=== PATIENT | female | born 1980 | race Caucasian/White ===

== ENCOUNTER → 2018-05-19 11:12 | Outpatient (CLI) | payer OTHER, SELFPAY ==
[2018-05-24 11:47] LABS: HPV Reflexed? NOT INDICATED
== END ==
PROVIDERS: Visit Provider Obstetrics & Gynecology
DX: Z12.4 Encounter for screening for malignant neoplasm of cervix (principal)
CPT/HCPCS: 88175; G0145

== ENCOUNTER → 2019-06-15 07:31 | Outpatient (CLI) | payer OTHER, SELFPAY ==
--- NOTE | 2019-06-15 07:39 | BI_ITS ---
MAMMOGRAPHY - BILATERAL SCREENING REASON FOR EXAM: Female, 38 years old. Routine annual screening examination. PERTINENT HISTORY: Non-contributory. TECHNIQUE: Digital bilateral breast brittany (3D mammographic acquisition) in the CC and MLO projections. 2-D mediolateral oblique (MLO) and craniocaudad (CC) views of both breasts were obtained. CAD: Full Field Digital Mammography with Computer Added Detection was performed. COMPARISON: None. Baseline examination. FINDINGS: Breast Composition: The breasts are extremely dense, which lowers the sensitivity of mammography. There are no dominant masses or suspicious calcifications. No other significant abnormalities are identified. BI/SCREEN MAMM (CAD) W/BRITTANY BILAT IMPRESSION: Negative screening mammogram. Yearly followup mammogram recommended. (A) ASSESSMENT CATEGORY: BIRADS Category 1: Negative. A letter regarding these results will be sent to the patient by the facility within 30 days. Approximately 10% of breast cancers are not detected by mammography. A normal mammogram should not delay biopsy of a clinically suspicious abnormality. [id number] Electronically Signed: Olivier Abrams, at 9:31 EDT , Service support ,
== END ==
PROVIDERS: Referring Provider Obstetrics & Gynecology; Visit Provider Obstetrics & Gynecology
DX: Z12.31 Encounter for screening mammogram for malignant neoplasm of breast (principal)
CPT/HCPCS: 77063; 77067

== ENCOUNTER → 2020-04-30 10:46 | Outpatient (CLI) | payer OTHER, SELFPAY | PROVIDERS: PCP Family Medicine; Referring Provider Family Medicine; Visit Provider Family Medicine | DX: Z20.828 Contact with and (suspected) exposure to other viral communicable diseases (principal) | CPT/HCPCS: 87635; G2023; U0003 ==

== ENCOUNTER → 2020-07-31 | Outpatient (CLI) | payer OTHER, SELFPAY ==
[2020-08-06 11:58] LABS: HPV Reflexed? NOT INDICATED
== END | disposition home or self-care (01) ==
LOC: LABSPEC 08-01 10:56
PROVIDERS: PCP Family Medicine; Visit Provider Obstetrics & Gynecology
DX: Z12.4 Encounter for screening for malignant neoplasm of cervix (principal)
CPT/HCPCS: 88175; G0145

== ENCOUNTER → 2020-08-28 16:40 | Outpatient (CLI) | payer OTHER, SELFPAY ==
--- NOTE | 2020-08-28 16:51 | BI_ITS ---
MAMMOGRAPHY - BILATERAL SCREENING REASON FOR EXAM: Female, 39 years old. Routine annual screening examination. PERTINENT HISTORY: Non-contributory. TECHNIQUE: Digital bilateral breast brittany (3D mammographic acquisition) in the CC and MLO projections. 2-D mediolateral oblique (MLO) and craniocaudad (CC) views of both breasts were obtained. CAD: Full Field Digital Mammography with Computer Added Detection was performed. COMPARISON: Comparison is made with prior study dated 06/15/2019. FINDINGS: Breast Composition: The breasts are extremely dense, which lowers the sensitivity of mammography. There are no dominant masses or suspicious calcifications. Stable benign-appearing bilateral axillary lymph nodes. No other significant abnormalities are identified. There has been no significant change since the prior study. BI/SCREEN MAMM (CAD) W/BRITTAYN BILAT IMPRESSION: Stable bilateral screening mammogram. Yearly follow-up mammogram recommended. (A) ASSESSMENT CATEGORY: BIRADS Category 2: Benign. A letter regarding these results will be sent to the patient by the facility within 30 days. Approximately 10% of breast cancers are not detected by mammography. A normal mammogram should not delay biopsy of a clinically suspicious abnormality. [id number] Electronically Signed: Olivier Abrams, at 9:02 EDT , Service support ,
== END ==
PROVIDERS: PCP Family Medicine; Referring Provider Obstetrics & Gynecology; Visit Provider Obstetrics & Gynecology
DX: Z12.31 Encounter for screening mammogram for malignant neoplasm of breast (principal)
CPT/HCPCS: 77063; 77067

== ENCOUNTER → 2021-10-10 10:08 | Outpatient (CLI) | payer OTHER, SELFPAY ==
--- NOTE | 2021-10-10 10:12 | BI_ITS ---
MAMMOGRAPHY - BILATERAL SCREENING REASON FOR EXAM: Female, 40 years old. Routine annual screening examination. PERTINENT HISTORY: Non-contributory. TECHNIQUE: Digital bilateral breast brittany (3D mammographic acquisition) in the CC and MLO projections. 2-D mediolateral oblique (MLO) and craniocaudad (CC) views of both breasts were obtained. CAD: Full Field Digital Mammography with Computer Added Detection was performed. COMPARISON: Comparison is made with prior examination dated 08/28/2020 and 06/15/2019. FINDINGS: Breast Composition: The breasts are extremely dense, which lowers the sensitivity of mammography. There are no dominant masses or suspicious calcifications. Stable benign-appearing bilateral axillary lymph nodes. No other significant abnormalities are identified. There has been no significant change since the prior study. BI/SCRN MAMM (CAD)W/BRITTANY BILAT IMPRESSION: Stable bilateral screening mammogram. Yearly follow-up mammogram recommended. (A) ASSESSMENT CATEGORY: BIRADS Category 1: Negative. A letter regarding these results will be sent to the patient by the facility within 30 days. Approximately 10% of breast cancers are not detected by mammography. A normal mammogram should not delay biopsy of a clinically suspicious abnormality. [id number] Electronically Signed: Olivier Abrams MD at 8:41 EST , Service support ,
== END ==
PROVIDERS: PCP Family Medicine; Referring Provider Obstetrics & Gynecology; Visit Provider Obstetrics & Gynecology
DX: Z12.31 Encounter for screening mammogram for malignant neoplasm of breast (principal)
CPT/HCPCS: 77063; 77067

== ENCOUNTER 2022-01-04 07:55 | Day surgery (SDC) | payer OTHER, SELFPAY ==
[2022-01-04] VITALS (7 sets, daily range): BP systolic 126–154; BP diastolic 85–91; PULSE 68–88; RESP 16; TEMP 36.4–37.3; O2SAT 96–100; BMI 36.7
--- NOTE | 2022-01-04 | COLBX_PTH ---
PATIENT: HILLARY CARO LOC: EN U#:[id number] AGE/SX: 41/F ROOM: RE01/04/[address]: Dr. Anabelle Ortiz MD : 1980 BED: DIS: 01/04/2022 SPEC #: [id number] RECD: 01/04/22 12:51 STATUS: SEAN REPradeep #: [id number] GARY: 01/04/22 00:[address]: Anabelle Ortiz DEPT: SURGICAL PATHOLOGY RECD BY: Jimbo Altamirano ENTERED: 01/04/22 13:52 SP TYPE: COLON BX OT DR: Dr. Lidia Bolaños, DO Tissues: COLON BIOPSY Procedures: Surgery Specimen Level IV HEADER OPERATION: Colonoscopy (MAC) with biopsy PRE-OP DIAGNOSIS: Diarrhea TISSUE SUBMITTED: Random colon biopsy MICROSCOPIC DIAGNOSIS Colon, random biopsy: No pathologic change. AM:judy 01/05/2022 MICROSCOPIC DESCRIPTION Slides are reviewed. GROSS DESCRIPTION Received in fixative is one container labeled with the patient's name and designated random colon biopsy. The specimen consists of multiple irregular fragments of light calixto soft tissue that in aggregate measure 1 x 0.5 x 0.1 cm. The specimen is totally submitted in one cassette. / SJ:judy 01/04/2022 TC:5 CPT: 78811
--- NOTE | 2022-01-04 08:01 | HP.PCM_ITS ---
History and Physical Date of Admission: 01/04/22 Date of Service: 12/11/21 Intake Vital Signs 12/11/21 14:02 Height 5 ft 5 in Weight: 227 lb 4 oz BMI 37.8 BP 147/95 H Blood Pressure Location Rt brachial Position Sitting Respiration 16 Pulse 86 Pulse Source Monitor Temp 97.4 F L Temp Source Temporal Pulse Oximetry (%) 98 Oxygen Delivery Method room air Intake Visit Reasons: CHRONIC DIARRHEA, CSCOPE Chief Complaint: chronic diarrhea, cscope Field Administrator Required: No Is patient in pain?: No Allergies Penicillins Allergy (Verified 12/11/21 14:04) unknown Medications cetirizine 10 mg tablet 10 mg PO DAILY PRN 12/11/21 [History Confirmed 12/11/21] multivitamin 1 tab PO DAILY 12/11/21 [History Confirmed 12/11/21] norgestimate-ethinyl estradiol 0.18 mg/0.215mg/0.25mg-35 mcg(28)tablet 1 tab PO DAILY 12/11/21 [History Confirmed 12/11/21] [facility] Medical History (Updated 12/11/21 @ 14:[address] Anabelle Ortiz MD) Acid reflux Diarrhea Hemorrhoids Surgical History (Updated 12/11/21 @ 14:01 by Rula Tuesday) History of tonsillectomy Previous section Social History (Updated 12/11/21 @ 14:02 by Rula Tuesday) Smoking Status: Never smoker alcohol intake: current details: socially substance use type: does not use HPI HPI HPI: HILLARY CARO, is a 41 F who presents to the office today for chronic diarrhea. Patient denies having reflux states she only has it maybe once a week. Patient's never had a colonoscopy. Patient has not had any stool studies completed. Patient denies any family history of colon cancer. Patient states she has been having diarrhea 1-2 times daily. ROS General General: Yes weight change; No appetite, fatigue, colon cancer or breast cancer HEENT HEENT: No difficulty swallowing, eye injury, eye surgery, swollen glands or hoarseness Endo Endocrine: No thyroid disease, diabetes mellitus, thyroid cancer, Hair loss, heat intolerance or cold intolerance Skin Skin: No rash or changing moles Musc Musculoskeletal: No back problems, arthritis, rheumatoid arthritis, gout or joint pain Cardio Cardiovascular: No murmur, pacemaker, heart disease, atrial fibrillation, high blood pressure, heart attack, heart stent, palpitations, shortness of breat with exertion or chest pain Psych Psychiatric: Yes anxiety; No depression or hearing voices Resp Respiratory: No shortness of breath, No sleep apnea, No cough, No COPD, No asthma, No emphysema and No wheezing Gastro Gastrointestinal: Yes abdominal pain, No nausea or vomiting, Yes diarrhea, No constipation, No blood in stool, Yes acid reflux, Yes hemorrhoids, No ulcers, No gallbladder problem and No black,tarry stools Dm Hematologic: No blood thinners, No blood disorders, No bleeding, No anemia and No blood clots Neuro Neurologic: No abnormal speech Exam Const General: cooperative, healthy appearing, comfortable and no acute distress Neck Neck: normal visual inspection Resp Effort & Inspection: normal respiratory effort Cardio Rate: regular rate GI Inspection: non-distended Palpation: soft, no guarding and nontender Skin General: no rashes or lesions noted Neuro General: patient oriented x3 Psych Affect: normal affect Assessment and Plan Assessment and Plan (1) Diarrhea: Status: Acute Plan - Dr. Anabelle Ortiz MD: I have discussed the above with the patient. I have offered the patient colonoscopy for evaluation. We will plan to do random biopsy as well. I have explained the risks/benefits of the procedure and described the procedure. I have discussed the risks with the patient, including but not limited to: infection, bleeding, perforation of the GI tract requiring emergency surgery, inability to complete the procedure, injury to any internal organs, complications of anesthesia, etc. - the patient understands and agrees to proceed. I have answered all the patient's questions to the patient's satisfaction and the patient has no further questions. The patient has been given instructions for the colon cleansing preparation. 1 day of clears, MiraLAX Dulcolax split prep. Anabelle Ortiz M.D. Pager: [phone] [facility] [address] [place] [address], [facility], [address] [place] [address] Office: [phone] (2) Acid reflux: Status: Acute Comment: Only maybe once a week Plan - Dr. Anabelle Ortiz MD: Patient states she only has reflux occasionally maybe once a week with burning in her esophagus. No need for medication. Plan Details Other Orders: Orders: Colonoscopy 12/11/21 Coding Level of Care Code Off vis,new,level 3 Diagnoses Diarrhea R19.7 Acid reflux K21.9 12/13/21 1325<Electronically signed by Anabelle Ortiz MD>Date Anabelle Ortiz MD
[2022-01-04 08:21] LABS: Internal QC Validated? YES +Cl - CLEAR BKGD; Pregnancy, Urine Negative Negative
[2022-01-04] MEDS: Lactated Ringers 1,000 ML 15 ML IV (08:30)
--- NOTE | 2022-01-04 09:25 | OP.COLON_ITS ---
Patient Name: Serenity Velasco Procedure Date: 01/04/2022 8:52 AM Date of : 1980 Age: 41 Procedure: Colonoscopy Indications: Chronic diarrhea Providers: Anabelle Ortiz MD Medicines: Monitored Anesthesia Care Patient Profile: This is a 41 year old female. Last Colonoscopy: none. The patient's first colonoscopy is today. Complications: No immediate complications. Procedure: Pre-Anesthesia Assessment: - Prior to the procedure, a History and Physical was performed, and patient medications and allergies were reviewed. The patient's tolerance of previous anesthesia was also reviewed. The risks and benefits of the procedure and the sedation options and risks were discussed with the patient. All questions were answered, and informed consent was obtained. Prior Anticoagulants: The patient has taken no previous anticoagulant or antiplatelet agents. ASA Grade Assessment: Per anesthesia. After reviewing the risks and benefits, the patient was deemed in satisfactory condition to undergo the procedure. After I obtained informed consent, the scope was passed under direct vision. Throughout the procedure, the patient's blood pressure, pulse, and oxygen saturations were monitored continuously. The pediatric colonoscope was introduced through the anus and advanced to the cecum, identified by the appendiceal orifice, ileocecal valve and palpation. The colonoscopy was performed without difficulty. The patient tolerated the procedure well. The quality of the bowel preparation was good. Scope In: 9:03:58 AM Scope Withdrawal Time 0 hours 9 minutes 18 seconds Scope Out: 9:20:28 AM Total Procedure Duration Time 0 hours 16 minutes 30 seconds Findings: The perianal and digital rectal examinations were normal. The entire examined colon appeared normal on direct and retroflexion views. Three random biopsies were obtained with cold forceps for histology. Impression: - The entire examined colon is normal on direct and retroflexion views. - Three random biopsies were obtained. Recommendation: - Discharge patient to home. - Resume previous diet. - Continue present medications. - Await pathology results. - Repeat colonoscopy in 10 years for screening purposes. Procedure Code(s): --- Professional --- 03639, Colonoscopy, flexible; with biopsy, single or multiple Diagnosis Code(s): --- Professional --- K52.9, Noninfective gastroenteritis and colitis, unspecified CPT copyright 2017 [employer]. All rights reserved. The codes documented in this report are preliminary and upon converter supervisor review may be revised to meet current compliance requirements. MD Anabelle Chen MD 01/04/2022 9:24:28 AM This report has been signed electronically. Number of Addenda: 0 Note Initiated On: 01/04/2022 8:52 AM
--- NOTE | 2022-01-04 09:25 | OP.CCLET_ITS ---
01/04/2022 Lidia Bolaños [address] [place] [address] Re : Colonoscopy procedure for Serenity Velasco Dear Dr. Bolaños This procedure was performed on Tuesday, January 04, 2022. My impressions and recommendations are as follows: Impressions : - The entire examined colon is normal on direct and retroflexion views. - Three random biopsies were obtained. Recommendations : - Discharge patient to home. - Resume previous diet. - Continue present medications. - Await pathology results. - Repeat colonoscopy in 10 years for screening purposes. My findings are described in the full procedure note, which is enclosed. If I can be of further assistance, please feel free to contact me at Doctor phone number(s): , Work: . Sincerely, MD Anabelle Chen MD 01/04/2022 9:24:28 AM This report has been signed electronically.
== END 2022-01-04 23:59 | disposition home or self-care (01) ==
LOC: EN 07:56 → AC 07:57
PROVIDERS: Anesthesiology; PCP Family Medicine; Referring Provider Family Medicine; Visit Provider Surgery
PROC: 0DJD8ZZ Inspection of Lower Intestinal Tract, Via Natural or Artificial Opening Endoscopic (ICD-10-PCS; CPT 45378; principal; 2022-01-04 09:10)
DX: K52.9 Noninfective gastroenteritis and colitis, unspecified (principal); K21.9 Gastro-esophageal reflux disease without esophagitis
CPT/HCPCS: 45380; 81025; 88305; J7120

== ENCOUNTER → 2022-10-29 | Outpatient (CLI) | payer OTHER, SELFPAY ==
--- NOTE | 2022-10-29 14:55 | RAD_ITS ---
STUDY: X-RAY CHEST REASON FOR EXAM: Female, 41 years old. Cough with chest pain. TECHNIQUE: Frontal and lateral views of the chest. COMPARISON: None. FINDINGS: The lungs are clear and expanded. There is no demonstrated pleural abnormality. Normal size heart. Normal mediastinum and alonso. Normal visualized pulmonary arteries. Normal visualized aortic arch and descending thoracic aorta. Normal visualized thoracic spine. Normal visualized ribs, clavicles, and shoulders. There is no demonstrated abnormality of the visualized soft tissue structures of the upper abdomen. RAD/Chest PA and Lateral IMPRESSION: Normal x-ray examination of the chest. Electronically Signed: Jn Kenney, at 15:23 EST ,
== END | disposition home or self-care (01) ==
LOC: MTRAD 14:54
PROVIDERS: PCP Family Medicine; Referring Provider Family Medicine; Visit Provider Family Medicine
DX: R07.9 Chest pain, unspecified (principal); R05.9 Cough, unspecified
CPT/HCPCS: 71046

== ENCOUNTER → 2024-10-08 | Outpatient (CLI) | payer OTHER, BC, SELFPAY ==
--- NOTE | 2024-10-08 14:29 | US_ITS ---
STUDY: ULTRASOUND BREAST - RIGHT REASON FOR EXAM: Female, 43 years old. Abnormal screening mammogram TECHNIQUE: Axial and longitudinal images of the RIGHT breast were performed with a high resolution ultrasound transducer. # OF IMAGES: 59 COMPARISON: Comparison is made with prior outside examination dated September 10, 2024. FINDINGS: RIGHT Breast: The lateral half from the right breast was examined with ultrasound. 2 benign lymph nodes are seen at the 9:00 position of the breast. The largest lymph node measures 1.1 cm x 0.9 cm x 0.4 cm. US/Breast Limited Unilateral IMPRESSION: 2 benign-appearing lymph nodes are seen in 9:00 position in the breast. ASSESSMENT CATEGORY: BIRADS Category 2: Benign. A letter regarding these results will be sent to the patient by the facility within 30 days. Electronically Signed: Olivier Abrams MD at 8:16 EST ,
--- NOTE | 2024-10-08 14:29 | BI_ITS ---
MAMMOGRAPHY - UNILATERAL DIAGNOSTIC: RIGHT BREAST REASON FOR EXAM: Female, 43 years old. Abnormal screening mammogram. PERTINENT HISTORY: Non-contributory. TECHNIQUE: Compression spot views of the right breast in mediolateral oblique and craniocaudad projection as well as 90 degree lateral view were obtained. CAD: Full Field Digital Mammography with Computer Added Detection was performed. COMPARISON: Comparison is made with prior outside examination September 10, 2024. FINDINGS: Breast Composition: The breasts are heterogeneously dense, which may obscure small masses. There are no dominant masses or suspicious calcifications. No other significant abnormalities are identified. BI/DIAG MAMM W/CAD, UNILAT IMPRESSION: Negative unilateral diagnostic mammogram. Targeted sonographic correlation recommended. ASSESSMENT CATEGORY: BIRADS Category 0: Incomplete. Need additional imaging evaluation. A letter regarding these results will be sent to the patient by the facility within 30 days. Approximately 10% of breast cancers are not detected by mammography. A normal mammogram should not delay biopsy of a clinically suspicious abnormality. Electronically Signed: Olivier Abrams MD at 8:28 EST ,
== END | disposition home or self-care (01) ==
PROVIDERS: PCP Family Medicine; Referring Provider Advanced Practice Midwife; Visit Provider Advanced Practice Midwife
DX: R92.8 Other abnormal and inconclusive findings on diagnostic imaging of breast (principal)
CPT/HCPCS: 76642; 77065